=== PATIENT | male | born 1960 | race Caucasian/White ===

== ENCOUNTER 2018-11-21 08:37 | Day surgery (SDC) | payer BC ==
[2018-11-19 14:43] VITALS: BP 141/83
[2018-11-19 14:50] LABS: BASOPHILS % (AUTO) 0.8 % (0.0-5.0); EOSINOPHILS % (AUTO) 7.7 % (0.0-8.0); HEMATOCRIT 45.8 % (42-54); LYMPHOCYTES % (AUTO) 39.6 % (21.0-51.0); MEAN CORPUSCULAR HEMOGLOBIN 32.9 pg (27.0-33.0); MEAN CORPUSCULAR HGB CONC 34.9 g/dL (32.0-36.0); MEAN CORPUSCULAR VOLUME 94.4 fL (79-99); MONOCYTES % (AUTO) 7.6 % (3.0-13.0); NEUTROPHILS % (AUTO) 44.3 % (40.0-77.0); PLATELET COUNT (AUTO) 221 K/uL (130-400); RED BLOOD CELL COUNT(AUTO) 4.85 MIL/uL (4.50-6.20); RED CELL DISTRIBUTION WIDTH 14.2 % (11.0-15.5); WHITE BLOOD COUNT (AUTO) 4.9 K/uL (4.8-10.8)
[2018-11-19 14:53] LABS: APPEARANCE,URINE Clear (CLEAR); BILIRUBIN,URINE Negative (NEGATIVE); COLOR,URINE Yellow (YELLOW); GLUCOSE, URINE (UA) Negative (NEGATIVE); KETONES,URINE Negative (NEGATIVE); LEUKOCYTE ESTERASE ,URINE Negative (NEGATIVE); NITRATE,URINE Negative (NEGATIVE); OCCULT BLOOD,URINE Negative (NEGATIVE); PROTEIN,URINE Negative (NEGATIVE); UROBILINOGEN,URINE 0.2 mg/dL (0.2-1.0)
[~2018-11-21] VITALS: Ht 172.7 cm; Wt 79.5 kg
[2018-11-21] VITALS (14 sets, daily range): BP systolic 116–148; BP diastolic 59–101
[~2018-11-21 08:37] MED LIST: CARI350T PO; HYDR-4068 PO
--- NOTE | 2018-11-21 09:30 | NUR ---
POTENTIAL FOR INFECTION: SHAVED ABDOMEN PER YESY FLETCHER.
[2018-11-21] MEDS: LACTATED RINGERS 1000ML 1,000 ML IV SCH ×2 (09:44→10:01)
[2018-11-21] MEDS ORDERED: ONDANSETRON HCL 4 MG/2 ML VIAL ONE (10:01)
[2018-11-21] MEDS ORDERED: GLYCOPYRROLATE 1 MG/5 ML SYRINGE ONE (10:01)
[2018-11-21] MEDS ORDERED: LIDOCAINE PF 2% 5ML ABBOJECT ONE ×2 (10:01→10:02)
[2018-11-21] MEDS ORDERED: SUCCINYLCHOLINE 200MG/10ML SYR ONE (10:01)
[2018-11-21] MEDS ORDERED: MIDAZOLAM HCL 1 MG/ML 2ML VIAL ONE (10:01)
[2018-11-21] MEDS ORDERED: DEXAMETHASONE SOD PHOSPHATE 10MG/ML 1ML VIAL ONE (10:01)
[2018-11-21] MEDS ORDERED: ROCURONIUM 10MG/1ML SYR 10 MG/ML ML ONE (10:02)
[2018-11-21] MEDS ORDERED: PROPOFOL 10 MG/ML 20ML VIAL IV ONE (10:02)
[2018-11-21] MEDS ORDERED: NEOSTIGMINE 5MG/5ML SYR IV ONE (10:02)
[2018-11-21] MEDS ORDERED: FENTANYL CITRATE PF 50 MCG/1 ML 2ML VIAL ONE ×2 (10:02→10:22)
[2018-11-21] MEDS ORDERED: BUPIVACAINE/PF 0.25% 30ML VIAL IJ ONE (10:24)
[2018-11-21] MEDS ORDERED: MEPERIDINE-PF 50 MG/ML SYG ONE (10:51)
--- NOTE | 2018-11-21 12:00 | NUR ---
ASSRODRIGUEZMENT RECEIVED PT FROM PACU STAFF Kimmy RUEDA RN. PT [id number]. DRSG TO ABD DRY AND INTACT. SOFT TO TOUCH. NO BLEEDING, OOZING NOTED TO SITE. AT BEDSIDE.
--- NOTE | 2018-11-21 12:20 | NUR ---
DISCHARGE ORAL AND WRITTEN DISCHARGE INSTRUCTIONS GIVEN TO PT AND PTS . NO OTHER QUESTIONS GIVEN. ABD DRSG DRY AND INTACT. NO OOZING, BLEEDING NOTED TO SITE. SOFT TO TOUCH.
== END 2018-11-21 12:35 | disposition home or self-care (01) ==
LOC: DAH 08:37
PROVIDERS: ATTEND Surgery
DX: K42.9 Umbilical hernia without obstruction or gangrene (principal)
CPT/HCPCS: 36415; 49585; 81003; 85025; A4450; A4452; A4606; C1781; J0330; J1100; J2001 ×2; J2175; J2250; J2405; J2704; J2710; J3010 ×2; J3490 ×2; J7120 ×2